=== PATIENT | male | born 2005 | race Two or more races ===

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

== ENCOUNTER 2025-01-03 16:01 | Emergency (ER) | payer MEDICAID ==
[~2025-01-03] VITALS: Ht 180.3 cm; Wt 60.3 kg
[~2025-01-03 16:01] MED LIST changes: +CLIN1CAP70 PO; +HYDR-4798 PO; +ONDA-144 PO
[2025-01-03 16:10] VITALS: BP 129/86; PULSE 95; RESP 16; O2SAT 96
== END 2025-01-03 16:54 | disposition left against medical advice (07) ==
LOC: EEVIPCON 16:07 → ER 16:07
DX: F51.5 Nightmare disorder (principal); Z53.21 Procedure and treatment not carried out due to patient leaving prior to being seen by health care provider

== ENCOUNTER 2025-06-03 21:34 | Emergency (ER) | payer MEDICAID ==
[~2025-06-03] VITALS: Ht 180.3 cm; Wt 129.0 kg
--- NOTE | 2025-06-03 21:53 | ED.PDOC ---
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 PT STATED SUDDEN ONSET OF GENERALIZED ITCHINESS AND HIVES. PT SELF MEDICATED WITH BENADRYL 50MG X1 HOUR AGO. NO DISTRESS NOTED. NO HIVES NOTED. (-) SOB (-) TONGUE SWELLING. GCS-15, ALL VSS. Chief Complaint: Allergic Reaction Time Seen by MD: 21:51 Primary Care Provider: Rachel AGUILA Reviewed Notes: Nurses Notes, Medications, Allergies Allergies: Coded Allergies: Bacitracin (Verified Allergy, Unknown, 01/19/23) Penicillins (Verified Allergy, Unknown, 06/03/25) Uncoded Allergies: PCN (Allergy, Mild, hives, 05/30/10) Home Meds Active Scripts Famotidine (Famotidine) 20 Mg Tab, 20 MG PO BID for 6 Days, #12 TAB Prov:KEVON RAMOS 06/03/25 Methylprednisolone (Medrol Dosepak) 4 Mg Keith, 4 MG PO UD for 6 Days, #21 TAB UAD Prov:KEVON RAMOS 06/03/25 Clindamycin Hcl (Clindamycin Hcl) 300 Mg Cap, 1 CAP PO TID for 7 Days, #21 CAP 0 Refills Prov:EDWINA XIONG 04/26/23 Ondansetron (Zofran) 4 Mg Tab, 1 TAB PO Q8HR PRN, #15 TAB 0 Refills Prov:EDWINA XIONG 04/26/23 Hydrocodone-Acetaminophen (Hydrocodone Bitartrate/AC 10-325 mg) 1 Tab Tab, 1 TAB PO Q4HPRN PRN, #15 TAB 0 Refills Prov:EDWINA XIONG 04/26/23 Albuterol Sulfate (VENTOLIN MDI) 90 Mcg Ih, 90 MCG IN BIDBM for 7 Days, #1 INH Prov:DRISS BLAIR MD 01/19/23 Information Source: Patient, Relative (Father) Past Medical History Immunizations: Current Medical History: Denies Operations: Denies Family History Family History: Reviewed,noncontributory to illness Social History Smoking: Non-Smoker Alcohol: Denies ETOH Use Drugs: Denies Drug Use Lives In: Home Constitutional: denies: chills, diaphoresis, fatigue, fever, malaise, sweats, weakness, others EENTM: denies: blurred vision, double vision, ear bleeding, ear discharge, ear drainage, ear pain, ear ringing, eye pain, eye redness, hearing loss, mouth pain, mouth swelling, nasal discharge, nose bleeding, nose congestion, nose pain, photophobia, tearing, throat pain, throat swelling, voice changes, others Respiratory: denies: cough, hemoptysis, orthopnea, SOB at rest, shortness of breath, SOB with excertion, stridor, wheezing, others Cardiovascular: denies: chest pain, dizzy spells, diaphoresis, Dyspnea on exertion, edema, irregular heart beat, left arm pain, lightheadedness, palpitations, PND, syncope, others Gastrointestinal: denies: abdomen distended, abdominal pain, blood streaked bowels, constipated, diarrhea, dysphagia, difficulty swallowing, hematemesis, melena, nausea, poor appetite, poor fluid intake, rectal bleeding, rectal pain, vomiting, others Genitourinary: denies: burning, dysuria, flank pain, frequency, hematuria, incontinence, penile discharge, penile sore, pain, testicle pain, testicle swelling, urgency, others Neurological: denies: dizziness, fainting, headache, left sided numbness, left sided weakness, numbness, paresthesia, pre-existing deficit, right sided numbness, right sided weakness, seizure, speech problems, tingling, tremors, weakness, others Musculoskeletal: denies: back pain, gout, joint pain, joint swelling, muscle pain, muscle stiffness, neck pain, others Integumetry: reports: rash; denies: bruises, change in color, change in hair/nails, dryness, laceration, lesions, lumps, wounds, others Allergic/Immunocompromised: denies: Difficulty Healing, Frequent Infections, Hives, Itching, others Hematologic/Lymphatic: denies: anemia, blood clots, easy bleeding, easy bruising, swollen glands, others Endocrine: denies: excessive hunger, excessive sweating, excessive thirst, excessive urination, flushing, intolerance to cold, intolerance to heat, unexplained weight gain, unexplained weight loss, others Psychiatric: denies: anxiety, bipolar disorder, depression, hopeless, panic disorder, schizophrenia, sleepless, suicidal, others Physical Exam General Appearance: No Apparent Distress, Normal HEENT: Normal ENT Inspection, Pharynx Normal Neck: Full Range of Motion, Non-Tender Respiratory: Chest Non-Tender, Lungs Clear, No Accessory Muscle Use, No Respir atory Distress, Normal Breath Sounds Cardiovascular: No Edema, No Murmur, Normal Peripheral Pulses, Regular Rate/Rhythm Breast Exam: Deferred Gastrointestinal: Non Tender, Soft Genitalia: Deferred Pelvic: Deferred Rectal: Deferred Extremities: Normal capillary refill, Normal inspection, Normal range of motion, Non-tender, No pedal edema Musculoskeletal : Apperance: Normal Neurologic: Alert, No Motor Deficits, Normal Affect, Normal Mood, No Sensory Deficits Cerebellar Function: Normal Reflexes: Normal Skin: Dry, Normal Color, Rash (Urticarial rash on bilateral legs and arms no noted excoriations or open lesions), Warm Lymphatic: No Adenopathy Was a procedure done? Was a procedure done?: No Differential diagnosis (all) Differential Diagnosis: Anaphylaxis, Angioedema, Bronchospasm, Urticaria X-Ray, Labs, Meds, VS Vital Signs Date Time Temp Pulse Resp B/P (MAP) Pulse Ox O2 Delivery O2 Flow Rate FiO2 06/03/25 22:15 97.7 64 16 111/77 (88) 98 97.7 06/03/25 22:00 Room Air* 0 21 06/03/25 21:55 98.1 72 20 118/83 (95) 98 98.1 06/03/25 21:55 20 98 Room Air* 0 21 Current Medications Medications (Trade) Dose Ordered Sig/Alis Route Start Time Stop Time Status Last Admin Dexamethasone Sodium Phosphate (Decadron Injection) 10 mg ONCE ONCE IM 06/03/25 22:00 06/03/25 22:01 DC 06/03/25 21:58 Famotidine (Pepcid Tablet) 20 mg ONCE ONCE PO 06/03/25 22:00 06/03/25 22:01 DC 06/03/25 21:58 X-Ray, Labs, Meds, VS Comment Deca and Pepcid given notes improvement requesting discgharge, 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 er return precautions given Time of 1ST Reevaluation: 21:52 Reevaluation 1ST: Unchanged Patient Education/Counseling: Diagnosis, Treatment, Prognosis, Need For Follow Up Family Education/Counseling: Diagnosis, Treatment, Prognosis, Need For Follow Up Departure 1 Departure Time of Disposition: 21:54 Impression: Primary Impression: Allergic reaction Qualified Codes: T78.40XA - Allergy, unspecified, initial encounter Disposition: 30 STILL A PATIENT Condition: Stable e-Prescriptions Famotidine (Famotidine) 20 Mg Tab 20 MG PO BID for 6 Days, #12 TAB Prov: KEVON RAMOS 06/03/25 Methylprednisolone (Medrol Dosepak) 4 Mg Keith 4 MG PO UD for 6 Days, #21 TAB UAD Prov: KEVON RAMOS 06/03/25 Discharged With: Relative (Father) Critical Care Note Critical Care Time?: No Stability Stability form required: No KEVON RAMOS Jun 03, 2025 21:53
[2025-06-03] MEDS ORDERED: METH4PAK PO (21:56)
[2025-06-03] MEDS ORDERED: FAMO-12 PO (21:56)
[2025-06-03] MEDS: FAMOTIDINE 20 MG TAB PO ONE (21:58)
[2025-06-03 22:15] VITALS: BP 111/77; PULSE 64; RESP 16; TEMP 97.7; O2SAT 98
== END 2025-06-03 22:49 | disposition home or self-care (01) ==
LOC: ER 21:34
DX: T78.40XA Allergy, unspecified, initial encounter (principal); X58.XXXA Exposure to other specified factors, initial encounter; Z88.0 Allergy status to penicillin
CPT/HCPCS: 96372; 99283; J1100

== ENCOUNTER 2025-06-08 10:26 | Outpatient (CLI) | payer MEDICAID ==
[~2025-06-08 10:26] MED LIST changes: +FAMO-12 PO; +METH4PAK PO
[2025-06-08 11:14] LABS: Hematocrit 44.6 % (41.0-53.0); Hemoglobin 15.5 g/dL (13.5-17.5); Mean Corpuscular Hemoglobin 29.8 pg (28.0-32.0); Mean Corpuscular Volume 85.8 fL (80.0-100.0); Nucleated Red Blood Cells % 0.2 %
[2025-06-08 11:22] LABS: Urine Protein, UAD Negative (Negative)
[2025-06-08 11:25] LABS: Albumin 4.7 g/dL (3.2-4.8); Alkaline Phosphatase 47 U/L (46-116); Anion Gap 7 (5-15); BUN/Creatinine Ratio 11.7 (10.0-20.0); Blood Urea Nitrogen 11 mg/dL (9-23); Calcium 10.1 mg/dL (8.7-10.4); Carbon Dioxide 30 mmol/L (20-31); Chloride 105 mmol/L (98-107); Cholesterol 120 mg/dL (< 200); Glucose 93 mg/dL (74-106); Potassium 4.9 mmol/L (3.5-5.1); Sodium 142 mmol/L (136-145); Total Protein 6.9 g/dL (5.7-8.2); Triglycerides 110 mg/dL (< 150)
[2025-06-08 11:26] LABS: Alanine Aminotransferase < 9 U/L (7-40); Bilirubin, Total 0.6 mg/dL (0.2-1.0); HDL Cholesterol 34 mg/dL (40-59)
== END 2025-06-08 19:37 | disposition home or self-care (01) ==
LOC: LAB 10:26
PROVIDERS: ATTEND Internal Medicine
DX: Z00.00 Encounter for general adult medical examination without abnormal findings (principal)
CPT/HCPCS: 36415; 80053; 80061; 81001; 82306; 82607; 84443; 85025